=== PATIENT | female | born 1995 | race Caucasian/White ===

== ENCOUNTER 2018-06-27 17:03 | Emergency (ER) | payer OTHER ==
[~2018-06-27] VITALS: Ht 157.5 cm; Wt 57.0 kg
[2018-06-27 17:08] VITALS: Ht 157.5 cm; Wt 57.0 kg
--- NOTE | 2018-06-27 18:13 | ERD ---
ER Documentation Chief Complaint Chief Complaint ST X 3 WEEKS HPI 23-year-old female, presents emergency department, complaining of upper respiratory symptoms for 3 weeks, the patient refers persistent sore throat, nocturnal cough and general malaise. No fever, no chills, no shortness of breath, no rashes. Medications taken: ROS All systems reviewed and are negative except as per history of present illness. Medications Home Meds Active Scripts Ibuprofen* (Motrin*) 400 Mg Tab, 400 MG PO Q8, #15 TAB Prov:ANGELICA GAITAN MD 06/27/18 Promethazine Hcl* (Promethazine Hcl* Syrup) 6.25 Mg/5 Ml Syrup, 6.25 MG PO TID PRN for COUGH, #120 ML Prov:ANGELICA GAITAN MD 06/27/18 Physical Exam Vitals Vital Signs Date Temp Pulse Resp B/P (MAP) Pulse Ox O2 O2 Flow FiO2 Time Delivery Rate 06/27/18 97.8 77 19 145/86 99 17:08 (105) Physical Exam Const: No acute distress Head: Atraumatic Eyes: Normal Conjunctiva ENT: Erythematous oropharynx Neck: Full range of motion. No meningismus. Resp: Mild rhonchi to auscultation bilaterally Cardio: Regular rate and rhythm, no murmurs Abd: Soft, non tender, non distended. Normal bowel sounds Skin: No petechiae or rashes Back: No midline or flank tenderness Ext: No cyanosis, or edema Neur: Awake and alert Psych: Normal Mood and Affect Procedures/MDM Differential diagnosis include but not limited to: Respiratory infection bacterial/viral/fungal. Asthma, pneumonitis, allergies, GERD. Less likely foreign body aspiration, cardiac related, aspiration pneumonia, malignancy. Physical examination and clinical presentation consistent most likely with viral syndrome. During the ED course the patient remained stable, no new complaints. Clinical impression discussed with the patient who agrees with management. The patient is stable to be treated outpatient and will be discharged home. antibiotics not indicated at this time. some side effects of prescribed medications (headache, rash, nausea, vomiting, diarrhea, drowsiness, hypertension, interactions with other medications) were reviewed. The patient was instructed to follow up with the primary care provider in the next 48h. If symptoms persist, worsen or new symptoms develop, then patient should return to the ED immediately. Disclaimer: Inadvertent spelling and grammatical errors are likely due to EHR/dictation software use and do not reflect on the overall quality of patient care. Also, please note that the electronic time recorded on this note does not necessarily reflect the actual time of the patient encounter. Departure Diagnosis: Primary Impression: Upper respiratory infection Condition: Stable Patient Instructions: Preventing Common Respiratory Infections Additional Instructions: Thank you very much for allowing us to participate in your care. Your health and safety is our top priority at [facility]. Call your primary care doctor TOMORROW for an appointment during the next 2-4 days and bring all the information and medications prescribed. Have prescriptions filled and follow precisely the directions on the label. If the symptoms get worse and your provider is unavailable, return to the Emergency Department immediately. ANGELICA GAITAN MD Jun 27, 2018 18:13
[2018-06-27] MEDS ORDERED: PROM6.2515 PO (19:15)
[2018-06-27] MEDS ORDERED: IBUP-1561 PO (19:17)
[2018-06-27 19:25] VITALS: BP 106/68; PULSE 86; RESP 18
== END 2018-06-27 19:27 | disposition home or self-care (01) ==
LOC: FTE 17:03
DX: J06.9 Acute upper respiratory infection, unspecified (principal)
CPT/HCPCS: 99283